=== PATIENT | male | born 2000 | race Two or more races ===

== ENCOUNTER 2024-01-31 10:45 | Emergency (ER) | payer BC ==
[~2024-01-31] VITALS: Ht 167.6 cm; Wt 123.2 kg
[2024-01-31 12:18] VITALS: BP 128/74; PULSE 64; RESP 16; TEMP 98.3; O2SAT 97
== END 2024-01-31 12:53 | disposition home or self-care (01) ==
LOC: ER 10:45
DX: R20.0 Anesthesia of skin (principal); Z98.890 Other specified postprocedural states